=== PATIENT | female | born 1965 | race Caucasian/White ===

== ENCOUNTER → 2017-12-09 | Outpatient (CLI) | payer OTHER ==
[~2017-12-09] MED LIST: BIFI1CAP PO; FISH1CAP PO; GLUC15006 PO; MULT-90 PO; VITAMIN B 12 PO
[2017-12-09 15:39] LABS: BASOPHILS # (AUTO) 0.03 x10^3/uL (0-0.1); BASOPHILS % (AUTO) 1 % (0-1); EOSINOPHILS # (AUTO) 0.12 x10^3/uL (0-0.4); EOSINOPHILS % (AUTO) 2 % (1-7); LYMPHOCYTES # (AUTO) 2.35 x10^3/uL (1-3.4); LYMPHOCYTES % (AUTO) 38 % (22-44); MD NO; MEAN CORPUSCULAR VOLUME 88.2 fL (80-100); MEAN PLATELET VOLUME 7.4 fL (7.4-10.4); MONOCYTES # (AUTO) 0.62 x10^3/uL (0.2-0.8); MONOCYTES % (AUTO) 10 % (2-9); NEUTROPHILS # (AUTO) 3.11 x10^3/uL (1.8-6.8); NEUTROPHILS % (AUTO) 50 % (42-75); PLATELET COUNT 330 x10^3/uL (130-400); RED BLOOD COUNT 4.59 x10^6/uL (3.82-5.3); RED CELL DISTRIBUTION WIDTH 13.2 % (9.6-15.2)
[2017-12-09 15:46] LABS: ANION GAP 6 mmol/L (5-15); CALCIUM 8.7 mg/dL (8.5-10.1); CHLORIDE 109 mmol/L (98-107)
[2017-12-09 15:47] LABS: CREATININE 0.79 mg/dL (0.55-1.02)
== END | disposition home or self-care (01) ==
LOC: STAR 14:48
PROVIDERS: ATTEND Obstetrics & Gynecology Female Pelvic Medicine and Reconstructive Surgery
DX: Z01.818 Encounter for other preprocedural examination (principal); N93.9 Abnormal uterine and vaginal bleeding, unspecified; D23.9 Other benign neoplasm of skin, unspecified; R10.2 Pelvic and perineal pain
CPT/HCPCS: 36415; 71046; 80048; 85025; 93005

== ENCOUNTER 2018-01-02 08:34 | Day surgery (SDC) | payer OTHER ==
[~2018-01-02] VITALS: Ht 167.6 cm; Wt 80.1 kg
[2018-01-02] MEDS ORDERED: LACTATED RINGERS 1,000 ML IV SCH ×2 (09:12→12:45)
[2018-01-02 09:27] VITALS: BP 133/88
[2018-01-02] MEDS ORDERED: ACETAMINOPHEN 500 MG TABLET PO ONE (09:30)
[2018-01-02] MEDS ORDERED: GABAPENTIN 300 MG CAPSULE PO ONE (09:30)
[2018-01-02] MEDS ORDERED: ONDANSETRON ODT 8 MG ONE (09:43)
[2018-01-02] MEDS ORDERED: EPINEPHRINE 1 MG/ML, 1ML ONE (09:44)
[2018-01-02] MEDS ORDERED: INDIGO CARMINE 0.8%, 5ML ONE (09:44)
[2018-01-02] MEDS ORDERED: BUPIVACAINE 0.25% ONE (09:44)
[2018-01-02] MEDS ORDERED: PROMETHAZINE 25 MG/ML, 1ML IM PRN ×2 (10:00)
[2018-01-02] MEDS ORDERED: hydrALAzine 20 MG/ML, 1ML IV PRN (10:00)
[2018-01-02] MEDS ORDERED: PROMETHAZINE 25 MG SUPP PR PRN (10:00)
[2018-01-02] MEDS ORDERED: LABETALOL 5MG/ML, 20ML IV PRN (10:00)
[2018-01-02] MEDS ORDERED: FENTANYL PF 100 MCG/2ML IV PRN (10:00)
[2018-01-02] MEDS ORDERED: HALOPERIDOL 5 MG/ML IV PRN (10:00)
[2018-01-02] MEDS ORDERED: ONDANSETRON ODT 8 MG PO ONE (10:00)
[2018-01-02] MEDS ORDERED: NEOSTIGMINE 1 MG/ML, 10ML ONE (10:00)
[2018-01-02] MEDS ORDERED: KETOROLAC 30 MG/1 ML ONE (10:00)
[2018-01-02] MEDS ORDERED: ACETAMINOPHEN 325 MG TABLET PO PRN (10:00)
[2018-01-02] MEDS ORDERED: HYDROmorphone 1 MG/ML, 1ML IV PRN (10:00)
[2018-01-02] MEDS ORDERED: GLYCOPYRROLATE 0.2MG/1ML, 5ML ONE (10:00)
[2018-01-02] MEDS ORDERED: PROMETHAZINE 12.5 MG SUPP PR PRN (10:00)
[2018-01-02] MEDS ORDERED: DEXAMETHASONE 4 MG/ML, 1ML ONE (10:00)
[2018-01-02] MEDS ORDERED: ONDANSETRON 2MG/ML, 2ML ONE (10:00)
[2018-01-02] MEDS ORDERED: ONDANSETRON ODT 8 MG PO PRN (10:00)
[2018-01-02] MEDS ORDERED: MORPHINE SULFATE 4 MG/ML, 1ML IVPush PRN (10:00)
[2018-01-02] MEDS ORDERED: ONDANSETRON 2MG/ML, 2ML IV PRN (10:00)
[2018-01-02] MEDS ORDERED: PROMETHAZINE 25 MG/ML, 1ML IV PRN (10:00)
[2018-01-02] MEDS ORDERED: CEFAZOLIN 1,000 MG ONE (10:00)
[2018-01-02] MEDS ORDERED: PROPOFOL 10 MG/ML, 20ML ONE (10:00)
[2018-01-02] MEDS ORDERED: MEPERIDINE/PF 25MG/0.5ML IVPush PRN (10:00)
[2018-01-02] MEDS ORDERED: MIDAZOLAM 1 MG/ML, 5ML ONE (10:00)
[2018-01-02] MEDS ORDERED: ROCURONIUM 10 MG/ML,10ML ONE (10:00)
[2018-01-02] MEDS ORDERED: OXYcodone 5 MG/5 ML ORAL.SOL UDC PO PRN (10:00)
[2018-01-02 10:08] LABS: HCG UR SG 1.021 (1.003-1.030)
[2018-01-02] MEDS ORDERED: HALOPERIDOL 5 MG/ML ONE (12:22)
[2018-01-02] MEDS ORDERED: FENTANYL PF 100 MCG/2ML ONE (12:58)
[2018-01-02] MEDS ORDERED: IBUPROFEN 600 MG TABLET PO PRN (13:00)
[2018-01-02] MEDS ORDERED: ONDANSETRON 2MG/ML, 2ML IVPush PRN (13:00)
[2018-01-02] MEDS ORDERED: PROMETHAZINE 25 MG SUPP PR ONE (13:00)
[2018-01-02] MEDS ORDERED: HYDROcodone/APAP 5/325 TABLET PO PRN (13:00)
== END 2018-01-02 15:55 | disposition home or self-care (01) ==
LOC: OUT 08:34
PROVIDERS: ATTEND Obstetrics & Gynecology Female Pelvic Medicine and Reconstructive Surgery
DX: D25.0 Submucous leiomyoma of uterus (principal); D27.1 Benign neoplasm of left ovary; N94.6 Dysmenorrhea, unspecified; N73.6 Female pelvic peritoneal adhesions (postinfective); Z98.890 Other specified postprocedural states; Z90.721 Acquired absence of ovaries, unilateral; N80.0 Endometriosis of uterus
CPT/HCPCS: 58571; 58662; 81025; 88307; J0171; J0690; J1100; J1630; J1885; J2250; J2405; J2704; J2710; J3010; J3490; J7120; Q0162; 88305

== ENCOUNTER → 2018-04-19 | Outpatient (CLI) | payer OTHER | END | disposition home or self-care (01) | LOC: CFH 10:19 | PROVIDERS: ATTEND Obstetrics & Gynecology Female Pelvic Medicine and Reconstructive Surgery | DX: Z12.31 Encounter for screening mammogram for malignant neoplasm of breast (principal) | CPT/HCPCS: 77067 ==